=== PATIENT | male | born 1985 | race Two or more races ===

== ENCOUNTER 2024-12-19 18:55 | Emergency (ER) | payer SELFPAY ==
[2024-12-19 18:59] VITALS: BP 117/79; PULSE 110; RESP 22; TEMP 37.1; O2SAT 94; BMI 24.1
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
[2024-12-19] MEDS: DIPHTH,PERTUSS(ACELL),TET VAC 0.5 ML SYR- ADULT IMi (20:51)
[2024-12-19] MEDS: LIDOCAINE HCL 1% 20 ML VIAL 10 ML INFL (20:57)
[2024-12-19 22:50] VITALS: PULSE 90; RESP 14; TEMP 37; O2SAT 99
== END 2024-12-19 22:52 ==
PROVIDERS: Emergency Provider Emergency Medicine
DX: S01.01XA Laceration without foreign body of scalp, initial encounter (principal); S09.90XA Unspecified injury of head, initial encounter; S19.9XXA Unspecified injury of neck, initial encounter; F10.929 Alcohol use, unspecified with intoxication, unspecified; V89.2XXA Person injured in unspecified motor-vehicle accident, traffic, initial encounter; Y90.9 Presence of alcohol in blood, level not specified; Z23 Encounter for immunization
CPT/HCPCS: 12002; 70450; 72125; 90471; 90715; 99284; J3490